=== PATIENT | female | born 1940 | race Caucasian/White ===

== ENCOUNTER 2016-12-30 08:12 | Inpatient (IN) | payer OTHER ==
[~2016-12-30] VITALS: Ht 157.5 cm; Wt 112.0 kg
--- NOTE | ~2016-12-30 | HP ---
History And Physical [place] [place]. [address] NAME: LUKASZ PICKENS LAUREN : 42 STATUS : ADM IN [facility]#: [id number] AGE: 76 ADM/REG DATE : 12/30/16 MR#: [id number] REPORT SERV DATE: 12/30/16 DICTATED BY: NICOLE CASTRO DATE: 12/30/16 REPORT STATUS : Draft TRANSCRIBED BY: MODL DATE: 12/30/16 DATE OF ADMISSION: 12/30/2016 REASON FOR ADMISSION: Postoperative abdominal wall wound infection. HISTORY OF PRESENT ILLNESS: This is a 76-year-old white female, who underwent a left nephrectomy due to chronic pyelonephritis and ureteral obstruction in 10/2016. The patient had good healing of the lateral portion of the wound, however, the medial portion had some minimal dehiscence and has had drainage and never healed. She had increasing redness, pain, and discomfort in that site with advancing redness around the edge. She has had no fever, chills, or night sweats. She came to the emergency room where she was evaluated by Dr. Star De La Rosa. He called Dr. Myers who asked that she be admitted to the hospital by the hospitalist service for IV antibiotics, and he will consult. Hospitalist Service is admitting for the above problems. PAST MEDICAL HISTORY: She has been hospitalized with chronic and recurrent pyelonephritis on the left side with distal ureteral obstruction in the past. She had a hip surgery on the right side and had a hip joint replacement by Dr. Enrico Browning in the past. She has a longstanding history of chronic renal failure, creatinine was 2.11 at time of discharge, now down to 1.8. HOME MEDICATIONS: Include the following: Tylenol as needed, allopurinol 100 mg p.o. daily, Pradaxa 200 mg p.o. b.i.d., vitamin D 2000 units p.o. daily, Celexa 200 mg p.o. daily, diltiazem 120 mg p.o. daily for atrial fibrillation, and the extended release 240 mg each morning, Colace 100 mg p.o. daily, Lasix 20 mg p.o. daily, Beverly-3 1000 mg p.o. daily, quinapril 40 mg p.o. daily, Ultram 50 mg p.o. three times a day, and allergy ophthalmic drops. ALLERGIES: NONE ARE KNOWN. SOCIAL HISTORY: She is since 2010. She lived in the same house on [address] in [place] behind the [employer] for the last 50 years. She has a son, who is a dehydrogenation converter operator. Granddaughter who is also a dehydrogenation converter operator lives with her in the basement of the house. She does not smoke cigarettes or take any alcohol. She attends [employer], sebd teacher Randy Carrion. FAMILY HISTORY: There is coronary artery disease, diabetes, dementia, and prostate cancer that runs in the family. REVIEW OF SYSTEMS: She has had no headache or eye pain. No nausea, vomiting, or diarrhea. No melena or hematemesis. She has had no unilateral weakness. She has an increasing pain and redness in the left flank and left lower quadrant of the abdomen. She fell on Friday and was unable to get up without the assistance of her granddaughter. She laid on the floor for over 12 hours, helped by granddaughter who presented with her previous shift. She has had no chest pain or shortness of breath. She does have chronic atrial fibrillation. She has had no History And Physical [address] [address] NAME: LUKASZ PICKENS SEPTEMBER : 42 STATUS : ADM IN [facility]#: [id number] AGE: 76 ADM/REG DATE : 12/30/16 MR#: [id number] REPORT SERV DATE: 12/30/16 DICTATED BY: NICOLE CASTRO DATE: 12/30/16 REPORT STATUS : Draft TRANSCRIBED BY: BENNIE DATE: 12/30/16 melena or hematemesis. No fits or seizures convulsions. She has had no weight loss. The remainder of the review of systems is negative. PHYSICAL EXAMINATION: GENERAL: Older, obese, white female, in no acute distress. VITAL SIGNS: Blood pressure 142/63 with a heart rate of 80, respiratory rate 14, oxygen saturation 97%. HEENT: EOMI. Sclerae clear. Conjunctivae pink. NECK: No bruit without any JVD. CHEST: Clear to A and P. HEART: Irregularly irregular. ABDOMEN: Soft, nontender. No masses felt except in the left lower quadrant where there is a 10 x 5 cm tubular-shaped abscess with chronic appearing cutaneous drainage on the medial aspect and healing on the lateral aspect of the incisional scar. EXTREMITIES: Have trace edema. Distal pulses are intact with dorsalis pedis and posterior tibial. NEUROLOGIC: She withdraws to plantar stimulation. Her car parker is equal and symmetric bilaterally and coordination intact. She has no tremor. She is symmetric neurologically bilaterally. BREASTS: Grossly without mass. LYMPHATICS: There is no adenopathy palpable. SKIN: Without rash, ecchymosis, or bruising, though there is redness in the margin extending out laterally to the wound described above. LABORATORY DATA: The white count was 20,700, with hemoglobin 12.4, hematocrit 38.5, platelet count is 263,000. Her INR was 2.4 on the Pradaxa. Her lactate level was 1.1. Her CMP showed a sodium 135, potassium 3.4, creatinine 1.8, BUN 27, glucose 107, albumin was 2.8. Alkaline phosphatase 133. Other liver tests were normal. Her procalcitonin level was 1.43. ASSESSMENT: 1. Left lower quadrant abdominal abscess in the incisional area from previous nephrectomy. 2. Status post nephrectomy in 10/2016. 3. Morbid obesity. 4. Chronic kidney disease stage 3, now with a creatinine down to 1.8. 5. Hypokalemia. The potassium is 3.4. We will replace. 6. Falling last Friday night. We will check a CPK. 7. History of hip joint replacement in [address] Browning. 8. History of small bowel obstruction, ileus. Complicated followup after the hip surgery by her history. PLAN: IV vancomycin and cefepime are what we will start with. Dr. Rafa Myers will see and attend to wound care and imaging to help decide on other interventions. We will continue to restart her home medication as are identified. DB/MODL History And Physical [address] [address] NAME: LUKASZ PICKENS : 42 STATUS : ADM IN [facility]#: [id number] AGE: 76 ADM/REG DATE : 12/30/16 MR#: [id number] REPORT SERV DATE: 12/30/16 DICTATED BY: NICOLE CASTRO DATE: 12/30/16 REPORT STATUS : Draft TRANSCRIBED BY: MODL DATE: 12/30/16 Nicole Castro M.D. / [id number] CC: Bennie Wiggins M.D. [facility] Gonzalo Stone M.D. William Young Jr., M.D. Michael C Allan, M.D. David Denman, M.D.
--- NOTE | ~2016-12-30 | CN ---
Consultation Report [facility] [address] [place]. [address] NAME: LUKASZ PICKENS SEPTEMBER : 42 STATUS : ADM IN [facility]#: [id number] AGE: 76 ADM/REG DATE : 12/30/16 MR#: [id number] REPORT SERV DATE: 01/01/17 DICTATED BY: ARMANDO PULLIAM III DATE: 01/01/17 REPORT STATUS : Draft TRANSCRIBED BY: MODL DATE: 01/01/17 WOUND HEALING SURGERY CONSULTATION DATE OF CONSULTATION: 01/01/2017 HISTORY OF PRESENT ILLNESS: The patient is a 76-year-old female status post abscess drainage and debridement yesterday by Dr. Raúl Myers. Cultures and sensitivities prior to the surgery were MRSA. The patient had a laparoscopic left nephrectomy on 10/23/2016 for chronic pyelonephritis and the wound in the left lower quadrant is in the site where the kidney was extracted from the abdominal cavity in this morbidly obese patient. The defect was described as being 4 to 6 inches, no depth given, although it was stated to be down to the rectus and the lateral muscle fascias. The patient now has a wound VAC that is in good functioning condition with no leak and good compression. The patient is presently on vancomycin. PAST MEDICAL HISTORY: The past history on the patient is she has a history of sepsis coming into the hospital with ileus and hypotension. She has a past medical history of migraines and tremors of bilateral hands. She has had cataract surgery with intra-ocular lenses bilaterally, high cholesterol, hypertension, atrial fibrillation, and has had workups by retail general manager as surgical clearance. She has shortness of breath on exertion. She has a history of arthritis, bone spurs, surgery in her right heel for spurs, and fractured ribs back in 2016 on the right side. She has degenerative joint disease. She has had a right total knee back in 04/2015. She has had an appendectomy, hernia surgery, gastroesophageal disease, and ileus post hip surgery. Her kidney disease is chronic kidney disease. The right kidney is functioning only 25% to 26%. The left kidney has been removed. She had a hysterectomy in the past. She has a history of dermatitis, anxiety, and depression. PAST SURGICAL HISTORY AND SYNOPSIS: Hysterectomy, abdominal hernia in 2006, tonsillectomy, bone spurs of the right heel, bilateral cataracts, bladder stimulator in 2012 for incontinence issues, right total hip arthroplasty in 05/11/2015, cystoscopy and stent in 08/2015 and a couple of exchanges; the last stent exchange was done 05/10/2016. ALLERGIES: ALLERGY TO WARFARIN THAT IS COUMADIN. MEDICATIONS: The allopurinol is one of her home medicines. Her medicines other than the allopurinol include calcium carbonate, vitamin D, Celexa, Pradaxa, Cartia XT, Lasix, Bactroban ointment to her incision, omega-3 fatty acid, Accupril 40 mg daily, Zantac 300 mg twice a day, tramadol 50 mg twice a day p.r.n. for pain, and some kind of allergy relief for her eye as an eye drop. Physical exam on the patient, she is a morbidly obese female in no acute distress, very pleasant and talkative. SOCIAL HISTORY: She is a . Lives at home. Is a nonsmoker and nondrinker. Has two Consultation Report [address] [place]. [address] NAME: LUKASZ PICKENS SEPTEMBER : 42 STATUS : ADM IN [facility]#: [id number] AGE: 76 ADM/REG DATE : 12/30/16 MR#: [id number] REPORT SERV DATE: 01/01/17 DICTATED BY: ARMANDO PULLIAM III DATE: 01/01/17 REPORT STATUS : Draft TRANSCRIBED BY: BENNIE DATE: 01/01/17 grown children who are very active in her life. She denies any street drugs. FAMILY HISTORY: Positive for atrial fibrillation, colon abscesses, Alzheimer, strokes, and dementia. REVIEW OF SYSTEMS: Unremarkable and is included in the overall history. PHYSICAL EXAMINATION: GENERAL: She is an obese white female in no acute distress. NECK: Supple with some osteoarthritic changes. CHEST: Clear from anterior to posterior. HEART: Irregular rate and rhythm consistent with atrial fibrillation. ABDOMEN: Obesity with an area in the left lower quadrant where a wound VAC is in place with black sponge with good compression; the sponge is approximately 4.5 cm x 16 cm. EXTREMITIES: Grossly anatomic and arthritic. NEUROLOGICAL: She is alert and oriented x3 with no lateralization. LABORATORY DATA: She is not a diabetic with a normal hemoglobin A1c is her lab work. Cultures have grown MRSA. IMPRESSION: The patient will need a least two weeks of soft tissue coverage for her wound infection and will need negative pressure wound therapy with changes every two to three days. She will either have to go to a residential facility for her medications or wound VAC or home with home health care for wound VAC changes. Case Management help is forthcoming. She will be followed in the Wound [facility]aling Clinic once she has gotten out of the institutional need for antibiotic coverage if need be. GEORGETTE/BENNIE Armando Pulliam III, M.D. / [id number] CC: Rosy Montoya M.D. [facility] JUDY Myers Jr., M.D.
--- NOTE | ~2016-12-30 | IDS ---
Interim Discharge Summary [facility] [address] [place]. [address] NAME: LUKASZ PICKENS SEPTEMBER : 42 STATUS : ADM IN [facility]#: [id number] AGE: 76 ADM/REG DATE : 12/30/16 MR#: [id number] REPORT SERV DATE: 01/05/17 DICTATED BY: BERENICE SPRINGER DATE: 01/05/17 REPORT STATUS : Draft TRANSCRIBED BY: MODL DATE: 01/05/17 ADMISSION DATE: 12/30/2016 DISCHARGE DATE: DIAGNOSES: So far, 1. Postoperative wound infection with abscess in the left lower quadrant of the abdomen, status post I and D and Vac-Pac. 2. Abscess in the left lower quadrant of the abdomen is positive for methicillin-resistant Staphylococcus aureus. 3. The patient is on IV vancomycin for the methicillin-resistant Staphylococcus aureus infection at this time and is being followed by ID. 4. The left lower quadrant abdominal abscess is a postoperative infection as the patient recently underwent a left nephrectomy by Dr. Myers for left-sided hydronephrosis. Soon after the left kidney was taken out for left-sided hydronephrosis and nonfunctioning kidney, she ended up with fever, lower abdominal pain, and leukocytosis and CT scan of the abdomen showed abdominal cellulitis. Dr. Pulliam has also been consulted for wound care. The patient, however, underwent an incision and drainage of the left abdominal abscess postoperatively by Dr. Myers again. Wound culture now is positive for methicillin-resistant Staphylococcus aureus. The patient now has a Vac-Pac and wound is being followed by Dr. Pulliam. ID is on also on board. BRIEF HOSPITAL COURSE: As above. The patient is a 76-year-old female patient who underwent a left-sided nephrectomy for nonfunctioning kidney and hydronephrosis. The patient also had a chronic pyelonephritis and ureteral obstruction, which led to all these issues apparently. The patient ended up with postoperative fever, abdominal pain, and abdominal cellulitis after this. CT scan of the abdomen showed a left abdominal abscess in the cavity where the kidney was supposed to be present. Dr. Myers, the urologist, performed an I and D and extracted pus from the left abdominal cavity and the culture of this is positive for MRSA. Infectious Disease has been consulted and has been following, and the plan is for the patient to be on IV vancomycin for a total of two weeks. So far, the patient has received IV vancomycin for a period of a total of 13 days. The patient will have to go to inpatient rehab/fpc facility to finish up her course of IV vancomycin. 1. Also plan, per surgeon, Dr. Pulliam, is that she get her wound cleaned out and Vac-Pac replaced every two to three days at least for the next two weeks and then follow up at the Wound Care Clinic. This is being done while here in the hospital and should be followed even when she is discharged to inpatient rehab/SNF. 2. Other problems in this lady also include chronic atrial fibrillation-the patient is stable on Pradaxa for this. 3. Ventricular response rate is well controlled with the diltiazem. 4. The patient also has chronic kidney disease stage 3 with a baseline creatinine of about 1.6 to 1.8. This is also stable at this time. The patient does have a flower shop laborer/designer, who follows also at this time and that is Dr. Echevarria. However, her kidney disease is chronic and there is no acute issues at this time and hence we have not consulted Nephrology at this time. 5. Other diagnoses also include status post hip replacement in [address] Browning and history of small-bowel obstruction complicated after her hip surgery in 2016, which is Interim Discharge Summary [address] [address] NAME: LUKASZ PICKENS LAUREN : 42 STATUS : ADM IN PAT#: [id number] AGE: 76 ADM/REG DATE : 12/30/16 MR#: [id number] REPORT SERV DATE: 01/05/17 DICTATED BY: BERENICE SPRINGER DATE: 01/05/17 REPORT STATUS : Draft TRANSCRIBED BY: MODRamiro DATE: 01/05/17 not an issue currently. This patient's care will be taken over by my partner on 01/07/2017. So, the plan on her is to finish up her IV vancomycin for the next seven days at an inpatient rehab/fpc facility and also give good postoperative wound care for the left lower quadrant abdominal wound by cleaning it out every two to three days and replacing the Vac-Pac every two to three days for the next two weeks. As mentioned above, one of my colleagues will be following this patient on 01/07/2017. CHLOE/BENNIE Berenice Springer M.D. / [id number] CC: Berenice Springer M.D. [facility]
--- NOTE | ~2016-12-30 | OP ---
Record Of Operation [facility] [address] [place]. [address] NAME: LUKASZ PICKENS SEPTEMBER : 42 STATUS : ADM IN [facility]#: [id number] AGE: 76 ADM/REG DATE : 12/30/16 MR#: [id number] REPORT SERV DATE: 12/31/16 DICTATED BY: RAFA MYERS JR. DATE: 12/31/16 REPORT STATUS : Draft TRANSCRIBED BY: MODRamiro DATE: 12/31/16 DATE OF PROCEDURE: 12/31/2016 PREOPERATIVE DIAGNOSIS: Wound abscess. POSTOPERATIVE DIAGNOSIS: Wound abscess. PROCEDURE PERFORMED: Incision and drainage of wound abscess and placement of Vac-Pac. COMPLICATIONS: None. CONSULTATIONS: None. ANESTHESIA: General with an endotracheal tube. SPECIMENS: Wound cultures. DRAINS: Vac-Pac. ESTIMATED BLOOD LOSS: 50 mL. INDICATION: Mrs. Pickens is a 76-year-old female, who is status post laparoscopic nephrectomy for a nonfunctioning pyelonephritic hydronephrotic kidney 4 months ago. She was doing reasonably well until recently she began having some increasing pain in the left lower quadrant. Her abdominal wall and the area where the kidney was removed from the abdomen, began getting quite erythematous. She had some necrotic areas of the skin and was admitted to the hospital for treatment of cellulitis and possible wound abscess. The interesting thing is that she did heal her wound in the interim, but based on exam, I feel that she had a wound and abscess cavity that needed to be drained. PROCEDURE IN DETAIL: After the patient was identified and proper informed consent was obtained, she was taken to the operating room. General anesthesia was performed without complication using an endotracheal tube. She was then prepped and draped in a normal sterile fashion in the supine position. I first made an elliptical incision over the medial portion of the wound around two of the necrotic areas that were approximately 2 cm each and excised the fairly large plug of subcutaneous tissue and fat and upon doing this, entered a purulent cavity superior to the incision site. I then used digital dissection to open up this area and then opened up the incision the rest of the length. I did excise a portion of the skin overlying the previous incision as this appeared to be somewhat necrotic as well. Once the incision had been completely opened, I irrigated the wound with a pulse lavage evacuator and then debrided necrotic tissue, down to the level of the rectus fascia and lateral abdominal fascia. Once I had debrided all the necrotic tissue, I then pulse lavaged once more and then placed a Vac-Pac device. The defect in the skin that she has an opening is approximately 6 inches x 4 inches. My plan will be to consult with the wound care team and develop a plan for management of this wound as an outpatient once she is able to go home. The patient was awakened in the operating room and transferred to the postanesthesia Record Of [address] [address] NAME: LUKASZ PICKENS SEPTEMBER : 42 STATUS : ADM IN [facility]#: [id number] AGE: 76 ADM/REG DATE : 12/30/16 MR#: [id number] REPORT SERV DATE: 12/31/16 DICTATED BY: RAFA MYERS JR. DATE: 12/31/16 REPORT STATUS : Draft TRANSCRIBED BY: BENNIE DATE: 12/31/16 care unit in stable condition. SWATHI/BENNIE Rafa Myers Jr., M.D. / [id number] CC: Gonzalo Anders RECORD
--- NOTE | ~2016-12-30 | CN ---
Consultation Report [facility] [address] [place]. [address] NAME: LUKASZ PICKENS SEPTEMBER : 42 STATUS : ADM [facility]#: [id number] AGE: 76 ADM/REG DATE : 12/30/16 MR#: [id number] REPORT SERV DATE: 01/04/17 DICTATED BY: ROBSON COOK DATE: 01/04/17 REPORT STATUS : Draft TRANSCRIBED BY: MODL DATE: 01/04/17 INFECTIOUS DISEASE CONSULTATION DATE OF CONSULTATION: REASON FOR REFERRAL: Evaluation and treatment of wound infection. HISTORY OF PRESENT ILLNESS: The patient is a 76-year-old female. She has a history of right total hip arthroplasty, gastroesophageal reflux disease, morbid obesity, past atrial fibrillation. She had a left nephrectomy for chronic pyelonephritis and ureteral obstruction in 10/2016 that was done laparoscopically by Dr. Raúl Myers of Urology. She had poor healing of part of the wound and then eventually developed redness and increased drainage and was admitted for that on 12/30. She was seen by Dr. Myers and taken to Surgery for incision and drainage of that wound. There was a finding of an abscess, it was found to be rather deep; it was all washed out. A Vac-Pac was placed on it. Multiple cultures have been sent, and they have all grown out methicillin-resistant Staph aureus. Had only gram- positive cocci on the Gram stain. After initial empiric vancomycin and cefepime, the cefepime was stopped and she has been on vancomycin since then. She has chronic renal insufficiency, so is on q.36 hours dosing. No troughs have been done thus far. She has remained afebrile throughout the hospital stay, had an elevated white count when she came in that has fallen, although it is back up slightly today. In general, she overall feels well and has not developed any new symptoms since arrival. PAST MEDICAL HISTORY: Otherwise unremarkable. MEDICATIONS: On vancomycin alone. ALLERGIES: SHE HAS NO ANTIMICROBIAL ALLERGIES. SOCIAL HISTORY: She is . Her in 2010. She is a nonsmoker, has no history of alcohol or substance abuse. FAMILY HISTORY: Noncontributory. PHYSICAL EXAMINATION: GENERAL: Nontoxic elderly female, in no acute distress. She is alert and oriented x3. VITAL SIGNS: Her temperature has been normal throughout the hospital stay, most recently 98 with a pulse of 75, respirations 20, blood pressure 170/72, weight 112 kg. HEENT: Sclerae clear. No oral lesions. NECK: Supple. LUNGS: Clear. HEART: Regular rate and rhythm. ABDOMEN: Soft. Positive bowel sounds are heard. Expected tenderness on the left side Consultation Report [facility] [address] [place] [place] [address] NAME: LUKASZ PICKENS SEPTEMBER : 42 STATUS : ADM IN [facility]#: [id number] AGE: 76 ADM/REG DATE : 12/30/16 MR#: [id number] REPORT SERV DATE: 01/04/17 DICTATED BY: ROBSON COOK DATE: 01/04/17 REPORT STATUS : Draft TRANSCRIBED BY: BENNIE DATE: 01/04/17 where the wound is. There is a Vac-Pac, however, there is no surrounding redness. No other skin or soft tissue lesions. IV site without signs of inflammation. LABORATORY DATA: Blood work: White count 17.2 today with hematocrit 37, platelets 422, differential is pending on the white count. BUN and creatinine 31 and 1.7. Procalcitonin at admission was 1.43. Blood cultures taken at admission remain negative. IMPRESSION: Postoperative wound infection and associated abscess due to methicillin- resistant Staph aureus, now status post debridement, Vac-Pac, and on vancomycin. RECOMMENDATION: 1. I feel that vancomycin is the best antibiotic for her at this point. 2. I also agree with the planned two weeks of vancomycin. There has been no trough, so it is unable to say whether she could have no more frequent dosing needed than once a day. If that is the case, she could possibly do this at home or in the infusion center, so we should be able to do a trial within the next day or so and determine that. I will follow the patient with you. I appreciate very much your consulting on this patient. ALON/BENNIE Robson Cook M.D. / [id number] CC: Rosy Montoya M.D. [facility] Gonzalo Aponte III, Jr., M.D.
--- NOTE | ~2016-12-30 | CN ---
Consultation Report [facility] [address] [place]. [address] NAME: LUKASZ PICKENS LAUREN : 42 STATUS : ADM IN [facility]#: [id number] AGE: 76 ADM/REG DATE : 12/30/16 MR#: [id number] REPORT SERV DATE: 12/30/16 DICTATED BY: RAFA MYERS JR. DATE: 12/30/16 REPORT STATUS : Draft TRANSCRIBED BY: MODL DATE: 12/30/16 DATE OF CONSULTATION: PULP ROLLER: Rafa Myers MD. CHIEF COMPLAINT: Abdominal wound cellulitis with possible abscess. HISTORY OF PRESENT ILLNESS: Mrs. Pickens is a very pleasant 76-year-old female, who I performed a laparoscopic nephrectomy on the left side for chronic pyelonephritis several months ago. She has had an intermittent problem with her wound in the left lower quadrant and had some difficulties healing but never had any drainage. Over the past few weeks, she has noted increasing redness and pain in the left lower quadrant along with some areas of skin that were not healing well. She presented to the emergency room and her white blood cell count was noted to be 20,000. She did not have any imaging today but overall is doing fairly well from a vital sign standpoint and not having any issues with instability. PAST MEDICAL HISTORY: Her past medical history is significant for plantar fasciitis, morbid obesity, migraines, hand tremors, hypertension, atrial fibrillation, degenerative joint disease, cataracts, hypercholesterolemia, arthritis, UTIs, rib fractures, gastroesophageal reflux disease, anxiety, depression, gout, kidney disease stage 4, and ileus. She also has a history of hernia repair in the umbilicus with presumed mesh. HOME MEDICATIONS: Include Tylenol; Zyloprim; vitamin D; Celexa; Pradaxa; Cardizem; Lasix; fish oil; Accupril; Zantac; and Ultram. ALLERGIES: COUMADIN. SOCIAL HISTORY: She is a . She lives at home. Nonsmoker and nondrinker. Two grown children. No illicit drug use. FAMILY HISTORY: Positive for atrial fibrillation, colon abscess, Alzheimer's, CVA, and dementia. SURGICAL HISTORY: In the past, the above-mentioned hernia repair; bladder stimulator in 2012; right JOEL; bilateral IOLI; right heel bone spurs; the left ureteral stents; hysterectomy; appendectomy; colonoscopy; tonsil and adenoidectomy. REVIEW OF SYSTEMS: A 10 system review was performed and essentially negative other than that stated above today. PHYSICAL EXAMINATION: GENERAL: She is a well-nourished, well-developed, obese female, in no acute distress. Afebrile. VITAL SIGNS: Stable. Consultation Report [facility] [address] [place]. [address] NAME: LUKASZ PICKENS LAUREN : 42 STATUS : ADM IN [facility]#: [id number] AGE: 76 ADM/REG DATE : 12/30/16 MR#: [id number] REPORT SERV DATE: 12/30/16 DICTATED BY: RAFA MYERS JR. DATE: 12/30/16 REPORT STATUS : Draft TRANSCRIBED BY: BENNIE DATE: 12/30/16 HEENT: Normocephalic and atraumatic. NECK: Symmetric. CHEST: Clear to auscultation bilaterally. HEART: Regular rate and rhythm. ABDOMEN: Soft, nontender, and nondistended over the left lower quadrant. She does have an erythematous area approximately 10 x 6 cm in size overlying her prior left lower quadrant incision that the kidney was removed through. There are a few areas of nonhealing skin in the middle of this erythema, I was unable to express any fluid from the wound; however, there are some areas of exquisite tenderness and possible fluctuance but it was mostly just very firm and hard. EXTREMITIES: Warm without cyanosis, clubbing, or edema. LABORATORY: Reveals a sodium 135, potassium 3.4, BUN 27, and creatinine 1.8. Lactate level was 1.1. CBC: White count 20.7, hemoglobin 12.4, and platelet count of 263. ASSESSMENT: Cellulitis of the abdominal wall with possible abscess of that same area. RECOMMENDATIONS: Agree with admission, rehydration; broad-spectrum antibiotic therapy with cultures. We will plan to I and D this wound tomorrow with possible placement of a VAC pack and debridement of the necrotic skin along the wound edge. I discussed the procedure with the patient. Her questions were answered to her satisfaction. Risks and possible complications were noted. DARWIN Rafa Myers Jr., M.D. / [id number] CC: Bennie Wiggins M.D. [facility]
--- NOTE | ~2016-12-30 | DS ---
Discharge Summary [id number] [place]. [address] NAME: LUKASZ PICKENS SEPTEMBER : 42 STATUS : ADM IN [facility]#: [id number] AGE: 76 ADM/REG DATE : 12/30/16 MR#: [id number] REPORT SERV DATE: 01/07/17 DICTATED BY: ALEJANDRA MEZA DATE: 01/07/17 REPORT STATUS : Draft TRANSCRIBED BY: MODL DATE: 01/07/17 ADMISSION DATE: 12/30/2016 DISCHARGE DATE: 01/07/2017 Please also refer to interim discharge summary dictated by Dr. Rosy Montoya on 01/05/2017. The patient stayed on 01/06/2017, while inpatient because she was waiting for the approval to go to inpatient rehab. DISCHARGE DIAGNOSES: 1. Postoperative wound infection with abscess in the left lower quadrant of the abdomen, status post incision and drainage, and Vac-Pac placement. 2. Abscess in the left lower quadrant of the abdomen, positive for MRSA methicillin- resistant Staphylococcus aureus. 3. Recent left nephrectomy per associate professor of pathology Dr. Myers for left-sided hydronephrosis with a subsequent development of intraabdominal abscess treated during this admission. 4. Chronic atrial fibrillation, rate controlled on Pradaxa. 5. Chronic kidney disease stage 3, stable creatinine. CONSULTANTS ON THE CASE: Dr. Pulliam of General surgery and Dr. Cook of Infectious Disease. For the details of hospitalization, refer to interim discharge summary dictated by Dr. Rosy Montoya. I saw the patient only on the day of discharge today when she got approved. DISCHARGE MEDICATIONS: Allopurinol 200 mg a day, vitamin D 2000 units daily, Celexa 40 mg daily, Pradaxa 150 twice a day, diltiazem ER 240 mg and diltiazem ER 120 at bedtime, Ranitidine 300 mg twice a day, Bactroban ointment topically three times a day, omega-3 fatty acids 2000 mg a day, Accupril 40 mg a day, Tylenol 1300 p.o. twice a day, calcium carbonate 3 to 4 tablets p.o. twice a day p.r.n., hydrocodone 5/325 one tablet p.o. q.6 hours p.r.n. for pain total of 15 pills prescription written without any refills; ophthalmic eye drops for allergy p.r.n., vancomycin 1 g IV q.24 hours until 01/18/2017, with a CBC, BMP, and vanc trough level every week per Dr. Cook's order and it needs to be faxed to Dr. Cook, result of it to the fax [phone]. The patient also wanted to keep her Reyes in, order is written to discontinue Reyes while at the [facility], this was discussed with the patient. FOLLOWUP: The patient needs to [facility] discharge from the [facility] per recommendations of Dr. Pulliam, as well as she needs to follow up with her primary care physician after discharge with [facility]. I spent 45 minutes on discharge. MG/MODL Discharge Summary [address] [place]. [address] NAME: LUKASZ PICKENS SEPTEMBER : 42 STATUS : ADM IN PAT#: [id number] AGE: 76 ADM/REG DATE : 12/30/16 MR#: [id number] REPORT SERV DATE: 01/07/17 DICTATED BY: ALEJANDRA MEZA DATE: 01/07/17 REPORT STATUS : Draft TRANSCRIBED BY: MODL DATE: 01/07/17 Alejandra Meza M.D. / [id number] CC: Rosy Montoya M.D. [facility] Gonzalo Talley III, M.D.
[~2016-12-30 08:12] MED LIST: 8 HOUR650 MG PO; ACCU20 PO; ACCUPRIL40 MG PO; ALLOPURINOL PO; AMPI500 PO; APRES25 PO; APRES50 PO; ASA5GR PO; CARDCD120 PO; CARDCD240 PO; CARTIA XT240 MG/24 PO; CELEXA20 PO; CELEXA40 MG PO; COUMADIN; COUMADIN4 MG PO; DILT-XR120 MG PO; DILT-XR240 MG PO; DSS PO; ELIQUIS 5 MG TAB5 MG PO; FERROUS SULF324 MG PO; FERROUS SULFATE PO; FESO4 PO; FESO4UDL PO; FISH OIL1200 MG PO; FISH-EPA1000 MG PO; FLAG500TAB PO; HYDROCHLOROT25 MG PO; L20 PO; LOP25 PO; MACROBID; MEDROLPAK4 PO; MELATONIN5 M1 PO; NORCO1 TAB PO; PEP20 PO; PERCOCET 7.5/321 TAB PO; PRADAXA150 MG PO; PREDNISONE DOSEPACK; RANITIDINE300 MG PO; RED YEAS1 OR; STOOL SOFTEN240 MG PO; ULTRAM50 PO; URISPAS100 MG PO; VISINE-A EYE AL15 ML OPH; VITAMIN D2000 UNIT PO; VITAMIN D31000 UNIT PO; X5 PO; Z100 PO; ZANTAC 150 PO; ZANTAC300 MG PO; [UNRECOGNIZED DRUG - REMARK] OPH
[2016-12-30 10:30] LABS: BASOPHILS 0.1 %; BASOPHILS ABSOLUTE 0.02 10/3/uL (0.0-0.16); EOSINOPHILS 0 %; EOSINOPHILS ABSOLUTE 0.01 10/3/uL (0.0-0.53); HEMATOCRIT 38.5 % (36.0-48.0); HEMOGLOBIN 12.4 g/dL (12.0-16.0); IMMATURE GRANULOCYTES 0.3 %; IMMATURE GRANULOCYTES ABSOLUTE 0.06 10/3/uL (0.0-0.11); LYMPHOCYTES 5.5 %; LYMPHOCYTES ABSOLUTE 1.14 10/3/uL (0.67-4.30); MEAN CORPUS HGB CONC 32.2 g/dL (32.0-36.0); MEAN CORPUSCULAR HEMOGLOB 28.8 pg (26.0-34.0); MONOCYTES 6.6 %; MONOCYTES ABSOLUTE 1.37 10/3/uL (0.21-1.20); NEUTROPHILS 87.5 %; NEUTROPHILS ABSOLUTE 18.06 10/3/uL (2.02-8.40); PLATELET COUNT 263 10/3/uL (150-400); RBC DISTRIBUTION WIDTH 14.6 % (12.0-16.0); RED CELL COUNT 4.31 10/6/uL (4.0-5.6)
[2016-12-30 10:31] LABS: ER CBC TAT 0 Hrs 09 Mins; MANUAL DIFF NO %; MEAN CORPUSCULAR VOLUME 89.3 fL (80-100); WHITE BLOOD CELLS 20.7 10/3/uL (4.5-10.5)
[2016-12-30 10:41] LABS: INTERNATIONAL NORMAL RATI 2.4 UNITS (-)
[2016-12-30 10:42] LABS: PARTIAL THROMBO TIME 83.8 SEC (22.5-37.2)
[2016-12-30 10:43] LABS: PROTIME (NOT ORD) 26.2 SEC (12.0-14.5)
[2016-12-30 10:46] LABS: A/G RATIO 0.7 (0.7-1.9); ALBUMIN 2.8 G/DL (3.5-5.0); ALKALINE PHOSPHATASE 133 U/L (45-117); BUN (BLOOD UREA NITROGEN) 27 MG/DL (6-23); CALCIUM, SERUM 9.5 MG/DL (8.5-10.4); CHLORIDE, SERUM 97 MMOL/L (96-112); CO2 (CARBON DIOXIDE) 29 MMOL/L (24-34); GFR AFRICAN AMERICAN 31 ML/MIN (>=60); GFR NON AFRICAN AMERICAN 27 ML/MIN (>=60); GLOBULIN 3.9 G/DL (2.5-4.1); GLUCOSE, SERUM 107 MG/DL (60-99); POTASSIUM, SERUM 3.4 MMOL/L (3.5-5.3); SGOT(AST) 14 U/L (5-40); SGPT(ALT) 16 U/L (5-65); SODIUM, SERUM 135 MMOL/L (135-148); TOTAL BILIRUBIN 0.9 MG/DL (0-1.2); TOTAL PROTEIN 6.7 G/DL (6.0-8.5)
[2016-12-30 10:50] LABS: LACTATE 1.1 MMOL/L (0.3-2.4)
[2016-12-30 11:05] LABS: PROCALCITONIN 1.43 ng/mL (<0.5)
[2016-12-30] MEDS ORDERED: ACCUPRIL40 MG PO (12:59)
[2016-12-30] MEDS ORDERED: CARTIA XT240 MG/24 PO (12:59)
[2016-12-30] MEDS ORDERED: CARTIA XT120 MG/24 PO (12:59)
[2016-12-30] MEDS ORDERED: L20 PO (13:01)
[2016-12-30] MEDS ORDERED: ULTRAM50 PO (13:02)
[2016-12-30] MEDS ORDERED: FISH-EPA1000 MG PO (13:02)
[2016-12-30] MEDS ORDERED: ALLERGY EYE RELIEF OPH (13:03)
[2016-12-30] MEDS ORDERED: 8 HOUR650 MG PO (13:03)
[2016-12-30] MEDS ORDERED: Z100 PO (13:04)
[2016-12-30] MEDS ORDERED: CELEXA40 MG PO (13:04)
[2016-12-30] MEDS ORDERED: PRADAXA150 MG PO (13:05)
[2016-12-30] MEDS ORDERED: ZANTAC300 MG PO (13:05)
[2016-12-30] MEDS ORDERED: BACTROINT TOP (13:06)
[2016-12-30] MEDS ORDERED: TUMSROLL PO (13:06)
[2016-12-30] MEDS ORDERED: VITAMIN D2000 UNIT PO (13:07)
[2016-12-31 05:12] LABS: BASOPHILS 0.1 %; BASOPHILS ABSOLUTE 0.02 10/3/uL (0.0-0.16); EOSINOPHILS 0.1 %; EOSINOPHILS ABSOLUTE 0.01 10/3/uL (0.0-0.53); HEMATOCRIT 35.2 % (36.0-48.0); HEMOGLOBIN 11.3 g/dL (12.0-16.0); IMMATURE GRANULOCYTES 0.5 %; IMMATURE GRANULOCYTES ABSOLUTE 0.08 10/3/uL (0.0-0.11); LYMPHOCYTES ABSOLUTE 1.41 10/3/uL (0.67-4.30); MEAN CORPUS HGB CONC 32.1 g/dL (32.0-36.0); MEAN CORPUSCULAR HEMOGLOB 28.7 pg (26.0-34.0); MEAN CORPUSCULAR VOLUME 89.3 fL (80-100); MEAN PLATELET VOLUME 9.1 fL (9.2-13.0); MONOCYTES 8.4 %; MONOCYTES ABSOLUTE 1.49 10/3/uL (0.21-1.20); NEUTROPHILS 82.9 %; NEUTROPHILS ABSOLUTE 14.64 10/3/uL (2.02-8.40); PLATELET COUNT 260 10/3/uL (150-400); RBC DISTRIBUTION WIDTH 14.4 % (12.0-16.0); RED CELL COUNT 3.94 10/6/uL (4.0-5.6); WHITE BLOOD CELLS 17.7 10/3/uL (4.5-10.5)
[2016-12-31 05:15] LABS: MANUAL DIFF NO %
[2016-12-31 05:21] LABS: BUN (BLOOD UREA NITROGEN) 26 MG/DL (6-23); CALCIUM, SERUM 8.8 MG/DL (8.5-10.4); CHLORIDE, SERUM 99 MMOL/L (96-112); CO2 (CARBON DIOXIDE) 26 MMOL/L (24-34); CREATININE 1.73 MG/DL (0.55-1.02); GFR AFRICAN AMERICAN 33 ML/MIN (>=60); GFR NON AFRICAN AMERICAN 28 ML/MIN (>=60); GLUCOSE, SERUM 108 MG/DL (60-99); SODIUM, SERUM 134 MMOL/L (135-148)
[2016-12-31 05:24] LABS: POTASSIUM, SERUM 4.3 MMOL/L (3.5-5.3)
[2017-01-02 06:37] LABS: BASOPHILS 0.1 %; BASOPHILS ABSOLUTE 0.01 10/3/uL (0.0-0.16); EOSINOPHILS 0 %; HEMATOCRIT 34.5 % (36.0-48.0); IMMATURE GRANULOCYTES 1.4 %; IMMATURE GRANULOCYTES ABSOLUTE 0.19 10/3/uL (0.0-0.11); LYMPHOCYTES 5.7 %; LYMPHOCYTES ABSOLUTE 0.79 10/3/uL (0.67-4.30); MEAN CORPUS HGB CONC 31.9 g/dL (32.0-36.0); MEAN CORPUSCULAR HEMOGLOB 28.1 pg (26.0-34.0); MEAN CORPUSCULAR VOLUME 88.2 fL (80-100); MEAN PLATELET VOLUME 9.1 fL (9.2-13.0); MONOCYTES 7.7 %; MONOCYTES ABSOLUTE 1.07 10/3/uL (0.21-1.20); NEUTROPHILS 85.1 %; RBC DISTRIBUTION WIDTH 14.8 % (12.0-16.0); RED CELL COUNT 3.91 10/6/uL (4.0-5.6)
[2017-01-02 06:38] LABS: MANUAL DIFF NO %; PLATELET COUNT 383 10/3/uL (150-400)
[2017-01-02 06:49] LABS: BUN (BLOOD UREA NITROGEN) 34 MG/DL (6-23); CALCIUM, SERUM 10.7 MG/DL (8.5-10.4); CHLORIDE, SERUM 101 MMOL/L (96-112); CO2 (CARBON DIOXIDE) 29 MMOL/L (24-34); CREATININE 1.59 MG/DL (0.55-1.02); GFR AFRICAN AMERICAN 36 ML/MIN (>=60); GFR NON AFRICAN AMERICAN 31 ML/MIN (>=60); GLUCOSE, SERUM 103 MG/DL (60-99); POTASSIUM, SERUM 4.5 MMOL/L (3.5-5.3); SODIUM, SERUM 136 MMOL/L (135-148)
[2017-01-03 06:04] LABS: BUN (BLOOD UREA NITROGEN) 32 MG/DL (6-23); CALCIUM, SERUM 10.3 MG/DL (8.5-10.4); CHLORIDE, SERUM 99 MMOL/L (96-112); CO2 (CARBON DIOXIDE) 30 MMOL/L (24-34); CREATININE 1.68 MG/DL (0.55-1.02); GFR AFRICAN AMERICAN 34 ML/MIN (>=60); GFR NON AFRICAN AMERICAN 29 ML/MIN (>=60); GLUCOSE, SERUM 100 MG/DL (60-99); POTASSIUM, SERUM 4.6 MMOL/L (3.5-5.3); SODIUM, SERUM 136 MMOL/L (135-148)
[2017-01-04 07:17] LABS: HEMOGLOBIN 11.4 g/dL (12.0-16.0); MEAN CORPUS HGB CONC 30.8 g/dL (32.0-36.0); MEAN CORPUSCULAR HEMOGLOB 27.9 pg (26.0-34.0); MEAN CORPUSCULAR VOLUME 90.7 fL (80-100); MEAN PLATELET VOLUME 8.6 fL (9.2-13.0); PLATELET COUNT 422 10/3/uL (150-400); RED CELL COUNT 4.08 10/6/uL (4.0-5.6); WHITE BLOOD CELLS 17.2 10/3/uL (4.5-10.5)
[2017-01-04 07:19] LABS: MANUAL DIFF YES %
[2017-01-04 07:27] LABS: BUN (BLOOD UREA NITROGEN) 31 MG/DL (6-23); CALCIUM, SERUM 9.8 MG/DL (8.5-10.4); CHLORIDE, SERUM 99 MMOL/L (96-112); CO2 (CARBON DIOXIDE) 31 MMOL/L (24-34); GFR AFRICAN AMERICAN 34 ML/MIN (>=60); GFR NON AFRICAN AMERICAN 29 ML/MIN (>=60); GLUCOSE, SERUM 100 MG/DL (60-99); POTASSIUM, SERUM 4.4 MMOL/L (3.5-5.3); SODIUM, SERUM 138 MMOL/L (135-148)
[2017-01-04 09:17] LABS: BAND NEUTROPHILS 6 %; EOSINOPHILS 1 %; EOSINOPHILS ABSOLUTE (CALC) 0.17 10/3/uL (0.0-0.53); IMMATURE GRANS ABSOLUTE (CALC) 1.03 10/3/uL (0.0-0.11); LYMPHOCYTES 13 %; LYMPHOCYTES ABSOLUTE (CALC) 2.24 10/3/uL (0.67-4.30); METAMYELOCYTES 5 %; MONOCYTES 2 %; MONOCYTES ABSOLUTE (CALC) 0.34 10/3/uL (0.21-1.20); MYELOCYTES 1 %; NEUTROPHILS ABSOLUTE (CALC) 13.42 10/3/uL (2.02-8.40); SEGMENTED NEUTROPHIL (0) 72 %; TOTAL NUCLEATED CELLS 100
[2017-01-04 09:18] LABS: HELMET CELLS OCC (0-2/OIF); PLATELET ESTIMATE SLT INC (ADEQUATE); POIKILOCYTOSIS 1+ (5-10/OIF) (0-5/OIF); TEARDROP SHAPED RBCS OCC (0-2/OIF)
[2017-01-04 09:19] LABS: HYPERSEGMENTED NEUT FEW (6-10%) % (0-5); TOXIC GRANULATION 1+
[2017-01-05 05:04] LABS: HEMOGLOBIN 11.5 g/dL (12.0-16.0); MEAN CORPUS HGB CONC 31.1 g/dL (32.0-36.0); MEAN CORPUSCULAR HEMOGLOB 27.9 pg (26.0-34.0); MEAN CORPUSCULAR VOLUME 89.8 fL (80-100); MEAN PLATELET VOLUME 8.8 fL (9.2-13.0); PLATELET COUNT 431 10/3/uL (150-400); RBC DISTRIBUTION WIDTH 15.1 % (12.0-16.0); RED CELL COUNT 4.12 10/6/uL (4.0-5.6); WHITE BLOOD CELLS 16.2 10/3/uL (4.5-10.5)
[2017-01-05 05:08] LABS: MANUAL DIFF YES %
[2017-01-05 05:20] LABS: CALCIUM, SERUM 10.1 MG/DL (8.5-10.4); CHLORIDE, SERUM 98 MMOL/L (96-112); CO2 (CARBON DIOXIDE) 29 MMOL/L (24-34); CREATININE 1.42 MG/DL (0.55-1.02); GFR AFRICAN AMERICAN 42 ML/MIN (>=60); GFR NON AFRICAN AMERICAN 36 ML/MIN (>=60); GLUCOSE, SERUM 113 MG/DL (60-99); POTASSIUM, SERUM 4.3 MMOL/L (3.5-5.3); SODIUM, SERUM 135 MMOL/L (135-148)
[2017-01-05 05:22] LABS: BUN (BLOOD UREA NITROGEN) 26 MG/DL (6-23)
[2017-01-05 07:18] LABS: BAND NEUTROPHILS 13 %; EOSINOPHILS 1 %; EOSINOPHILS ABSOLUTE (CALC) 0.16 10/3/uL (0.0-0.53); HYPOCHROMIA 1+ (3-10/OIF) (0-2/OIF); IMMATURE GRANS ABSOLUTE (CALC) 2.43 10/3/uL (0.0-0.11); LYMPHOCYTES 11 %; LYMPHOCYTES ABSOLUTE (CALC) 1.78 10/3/uL (0.67-4.30); METAMYELOCYTES 11 %; MONOCYTES 5 %; MONOCYTES ABSOLUTE (CALC) 0.81 10/3/uL (0.21-1.20); MYELOCYTES 4 %; NEUTROPHILS ABSOLUTE (CALC) 11.02 10/3/uL (2.02-8.40); PLATELET ESTIMATE SLT INC (ADEQUATE); SEGMENTED NEUTROPHIL (0) 55 %; TOTAL NUCLEATED CELLS 100
[2017-01-06 04:11] LABS: HEMATOCRIT 36.2 % (36.0-48.0); HEMOGLOBIN 10.9 g/dL (12.0-16.0); MEAN CORPUS HGB CONC 30.1 g/dL (32.0-36.0); MEAN CORPUSCULAR HEMOGLOB 27.9 pg (26.0-34.0); MEAN PLATELET VOLUME 8.4 fL (9.2-13.0); NUCLEATED RED BLOOD CELLS 0.3 /100WBC (0-0); PLATELET COUNT 438 10/3/uL (150-400); RBC DISTRIBUTION WIDTH 15.4 % (12.0-16.0); RED CELL COUNT 3.91 10/6/uL (4.0-5.6); WHITE BLOOD CELLS 15.1 10/3/uL (4.5-10.5)
[2017-01-06 04:12] LABS: MANUAL DIFF YES %; MEAN CORPUSCULAR VOLUME 92.6 fL (80-100)
[2017-01-06 04:15] LABS: BUN (BLOOD UREA NITROGEN) 29 MG/DL (6-23); CHLORIDE, SERUM 101 MMOL/L (96-112); CO2 (CARBON DIOXIDE) 31 MMOL/L (24-34); CREATININE 1.32 MG/DL (0.55-1.02); GFR AFRICAN AMERICAN 46 ML/MIN (>=60); GFR NON AFRICAN AMERICAN 39 ML/MIN (>=60); GLUCOSE, SERUM 102 MG/DL (60-99); POTASSIUM, SERUM 4.5 MMOL/L (3.5-5.3); SODIUM, SERUM 139 MMOL/L (135-148)
[2017-01-06 04:31] LABS: BAND NEUTROPHILS 10 %; HYPOCHROMIA 1+ (3-10/OIF) (0-2/OIF); IMMATURE GRANS ABSOLUTE (CALC) 1.96 10/3/uL (0.0-0.11); LYMPHOCYTES 10 %; LYMPHOCYTES ABSOLUTE (CALC) 1.51 10/3/uL (0.67-4.30); METAMYELOCYTES 10 %; MONOCYTES 2 %; MYELOCYTES 3 %; NEUTROPHILS ABSOLUTE (CALC) 11.33 10/3/uL (2.02-8.40); PLATELET ESTIMATE SLT INC (ADEQUATE); SEGMENTED NEUTROPHIL (0) 65 %; TOTAL NUCLEATED CELLS 100
[2017-01-07 05:07] LABS: HEMATOCRIT 35.6 % (36.0-48.0); HEMOGLOBIN 10.9 g/dL (12.0-16.0); MEAN CORPUS HGB CONC 30.6 g/dL (32.0-36.0); MEAN CORPUSCULAR HEMOGLOB 28.3 pg (26.0-34.0); MEAN CORPUSCULAR VOLUME 92.5 fL (80-100); MEAN PLATELET VOLUME 8.6 fL (9.2-13.0); PLATELET COUNT 416 10/3/uL (150-400); RBC DISTRIBUTION WIDTH 15.5 % (12.0-16.0); RED CELL COUNT 3.85 10/6/uL (4.0-5.6); WHITE BLOOD CELLS 12.6 10/3/uL (4.5-10.5)
[2017-01-07 05:09] LABS: MANUAL DIFF YES %
[2017-01-07 05:16] LABS: BUN (BLOOD UREA NITROGEN) 31 MG/DL (6-23); CALCIUM, SERUM 10.1 MG/DL (8.5-10.4); CHLORIDE, SERUM 98 MMOL/L (96-112); CO2 (CARBON DIOXIDE) 33 MMOL/L (24-34); GFR AFRICAN AMERICAN 39 ML/MIN (>=60); GFR NON AFRICAN AMERICAN 34 ML/MIN (>=60); GLUCOSE, SERUM 136 MG/DL (60-99); POTASSIUM, SERUM 4.4 MMOL/L (3.5-5.3); SODIUM, SERUM 137 MMOL/L (135-148)
[2017-01-07 06:21] LABS: BAND NEUTROPHILS 6 %; EOSINOPHILS 2 %; EOSINOPHILS ABSOLUTE (CALC) 0.25 10/3/uL (0.0-0.53); IMMATURE GRANS ABSOLUTE (CALC) 0.38 10/3/uL (0.0-0.11); LYMPHOCYTES 11 %; LYMPHOCYTES ABSOLUTE (CALC) 1.39 10/3/uL (0.67-4.30); METAMYELOCYTES 3 %; MONOCYTES 3 %; MONOCYTES ABSOLUTE (CALC) 0.38 10/3/uL (0.21-1.20); NEUTROPHILS ABSOLUTE (CALC) 10.21 10/3/uL (2.02-8.40); SEGMENTED NEUTROPHIL (0) 75 %; TOTAL NUCLEATED CELLS 100
[2017-01-07 06:22] LABS: PLATELET ESTIMATE SLT INC (ADEQUATE); POLYCHROMASIA 1+ (2-5/OIF) (0-1/OIF); TOXIC GRANULATION 1+
== END 2017-01-07 18:07 | DRG 857 ==
LOC: ER 08:12 → 4SO 14:47
PROVIDERS: Emergency Medicine; Internal Medicine
PROC: 0J980ZZ Drainage of Abdomen Subcutaneous Tissue and Fascia, Open Approach (ICD-10-PCS; principal; 2016-12-30)
PROC: 02HV33Z Insertion of Infusion Device into Superior Vena Cava, Percutaneous Approach (ICD-10-PCS; 2017-01-06)
DX: T81.4XXA Infection following a procedure, initial encounter (principal); L03.311 Cellulitis of abdominal wall; I96 Gangrene, not elsewhere classified; I48.2 Chronic atrial fibrillation; Z68.42 Body mass index [BMI] 45.0-49.9, adult; N18.3 Chronic kidney disease, stage 3 (moderate); E66.01 Morbid (severe) obesity due to excess calories; E87.6 Hypokalemia; W18.30XA Fall on same level, unspecified, initial encounter; Z89.621 Acquired absence of right hip joint; Z79.01 Long term (current) use of anticoagulants
CPT/HCPCS: 36569; 71010; 80048; 80053; 80202; 82962; 83605; 84145; 85025; 85610; 85730; 87015; 87040; 87070; 87075; 87077; 87102; 87116; 87186; 87205; 93005; 94640; 96374; 96375; 97161-GP; 97530-GP; 99284; A9270-GY; C1751; G8978-CJ-GP; G8979-CI-GP; J0692; J1170; J2270; J2370; J2405; J2710; J3010; J3370